=== PATIENT | male | born 1945 | race Caucasian/White ===

== ENCOUNTER 2017-06-18 05:59 | Day surgery (SDC) | payer MEDICARE, OTHER ==
[2017-06-18] MEDS ORDERED: MIDAZOLAM INJ 2 MG/2 ML VIAL ONE (10:24)
[2017-06-18] MEDS ORDERED: PROPARACAINE 0.5% OPHTH SOL 15 ML BTTL ONE (10:48)
[2017-06-18] MEDS ORDERED: TROP 1%/CYCLOPEN 1%/PHENYL 2% DROPS ONE (10:48)
[2017-06-18] MEDS ORDERED: TROP 1%/CYCLOPEN 1%/PHENYL 2% DROPS OPHTH ONE (11:30)
[2017-06-18] MEDS ORDERED: TOBRAMYCIN SULF 0.3 % OPHT SOL 1 DROP RIGHT_EYE ONE ×4 (11:30→12:31)
[2017-06-18] MEDS ORDERED: PROPARACAINE 0.5% OPHTH SOL 15 ML BTTL RIGHT_EYE ONE ×2 (12:05→12:10)
[2017-06-18] MEDS ORDERED: LIDOCAINE 1% PF 2 ML AMP INJ ONE (12:17)
[2017-06-18] MEDS ORDERED: DEXAMETHASONE 0.1% OPHTH SOL 1 DROP RIGHT_EYE ONE ×3 (12:21→12:31)
[2017-06-18] MEDS ORDERED: BRIMONIDINE 0.2% OPHTH DROPS RIGHT_EYE ONE ×3 (12:22→12:31)
[2017-06-18 13:02] VITALS: TEMP 97; O2SAT 97
[2017-06-18 13:13] VITALS: BP 136/72
== END 2017-06-18 13:10 | disposition home or self-care (01) ==
LOC: AMB 05:59
PROVIDERS: ATTEND Ophthalmology
DX: H25.11 Age-related nuclear cataract, right eye (principal); I10 Essential (primary) hypertension; E11.36 Type 2 diabetes mellitus with diabetic cataract; K21.9 Gastro-esophageal reflux disease without esophagitis; E66.9 Obesity, unspecified; F17.220 Nicotine dependence, chewing tobacco, uncomplicated; I25.2 Old myocardial infarction; Z79.84 Long term (current) use of oral hypoglycemic drugs; Z79.02 Long term (current) use of antithrombotics/antiplatelets; Z79.899 Other long term (current) drug therapy
CPT/HCPCS: 36416; 66984; 82948; J2250

== ENCOUNTER 2017-07-02 06:15 | Day surgery (SDC) | payer MEDICARE, OTHER ==
[2017-07-02] MEDS ORDERED: PROPARACAINE 0.5% OPHTH SOL 15 ML BTTL ONE (07:36)
[2017-07-02] MEDS ORDERED: TROP 1%/CYCLOPEN 1%/PHENYL 2% DROPS ONE (07:37)
[2017-07-02] MEDS: TOBRAMYCIN SULF 0.3 % OPHT SOL 1 DROP LEFT_EYE ONE ×2 (09:23→10:16)
[2017-07-02] MEDS ORDERED: MIDAZOLAM INJ 2 MG/2 ML VIAL ONE (09:50)
[2017-07-02] MEDS ORDERED: PROPARACAINE 0.5% OPHTH SOL 15 ML BTTL LEFT_EYE ONE (09:54)
[2017-07-02] MEDS ORDERED: LIDOCAINE 1% PF 2 ML AMP INJ ONE (09:56)
[2017-07-02] MEDS ORDERED: DEXAMETHASONE 0.1% OPHTH SOL 1 DROP LEFT_EYE ONE ×3 (10:04→10:16)
[2017-07-02] MEDS ORDERED: TOBRAMYCIN SULF 0.3 % OPHT SOL 1 DROP LEFT_EYE ONE ×2 (10:04→10:10)
[2017-07-02] MEDS ORDERED: BRIMONIDINE 0.2% OPHTH DROPS LEFT_EYE ONE ×3 (10:05→10:16)
[2017-07-02 13:00] VITALS: O2SAT 96
[2017-07-02 13:24] VITALS: BP 143/79; TEMP 96.9
== END 2017-07-02 10:40 | disposition home or self-care (01) ==
LOC: AMB 06:15
PROVIDERS: ATTEND Ophthalmology
DX: H25.12 Age-related nuclear cataract, left eye (principal); I10 Essential (primary) hypertension; I25.10 Atherosclerotic heart disease of native coronary artery without angina pectoris; E11.36 Type 2 diabetes mellitus with diabetic cataract; K21.9 Gastro-esophageal reflux disease without esophagitis; E66.9 Obesity, unspecified; F17.220 Nicotine dependence, chewing tobacco, uncomplicated; Z79.899 Other long term (current) drug therapy
CPT/HCPCS: 00142; 36416; 66984; 82948; J2250

== ENCOUNTER → 2019-02-13 | Outpatient (CLI) | payer MEDICARE, OTHER ==
--- NOTE | 2019-02-13 16:46 | US ---
EXAM DESCRIPTION: Renal: Ultrasound. CLINICAL HISTORY: 73 years Male CYST OF KIDNEY COMPARISON: None. TECHNIQUE: Transcutaneous scanning: Two-dimensional and Doppler modes. Technically difficult study due to patient body habitus. FINDINGS: Right kidney measures 10.3 x 6.7 x 7.0 cm; mid-renal cortical thickness 14 mm. . Increased cortical echogenicity same as liver. No hydronephrosis No echogenic stones. Smooth contour of the kidney with no perinephric fluid. 4.3 x 3.5 x 3.0 cm lobulated anechoic cyst with thin valdes and posterior acoustic enhancement. Normal vascularity. Proximal ureter not visualized. Left kidney measures 11.3 x 6.8 x 6.2 cm; mid-renal cortical thickness 15 mm. Increased cortical echogenicity same as the liver. No hydronephrosis. No echogenic stones. Slightly lobulated contour of the kidney with no perinephric fluid. Normal vascularity.. Proximal ureter not visualized visualized. Urinary bladder not visualized. Abdominal aorta: not measured. IMPRESSION: 1. Bilateral kidneys normal size and cortical thickness. 4.3 cm lobulated cyst on the right kidney. Cortical echogenicity and increased, similar to the liver. Slightly lobulated left renal capsule. This can indicate medical renal disease. Correlate with renal function studies. 2. Urinary bladder and abdominal aorta were not evaluated.. Electronically signed by: Jesus Craft MD 02/13/2019 4:43 PM CDT
== END ==
LOC: US 10:46
PROVIDERS: ATTEND Emergency Medicine
DX: N28.1 Cyst of kidney, acquired (principal)

== ENCOUNTER → 2019-04-28 | Outpatient (CLI) | payer MEDICARE, OTHER | LOC: LAB.O 12:41 | PROVIDERS: ATTEND Internal Medicine Cardiovascular Disease | DX: I25.10 Atherosclerotic heart disease of native coronary artery without angina pectoris (principal); E78.5 Hyperlipidemia, unspecified; Z51.81 Encounter for therapeutic drug level monitoring ==

== ENCOUNTER → 2019-08-08 | Outpatient (CLI) | payer MEDICARE, OTHER | LOC: LAB.O 14:20 | PROVIDERS: ATTEND Internal Medicine Cardiovascular Disease | DX: I25.10 Atherosclerotic heart disease of native coronary artery without angina pectoris (principal); I50.9 Heart failure, unspecified; E11.9 Type 2 diabetes mellitus without complications; I10 Essential (primary) hypertension; E03.9 Hypothyroidism, unspecified; R06.02 Shortness of breath ==

== ENCOUNTER 2019-08-14 16:25 | Emergency (ER) | payer MEDICARE, OTHER ==
[2019-08-14] MEDS ORDERED: TETRACAINE HCL 0.5% OPHTH SOL 1 DROP ONE (16:38)
[2019-08-14] MEDS ORDERED: MORPHINE SULFATE INJ 10 MG/ML VIAL ONE (17:30)
[2019-08-14] MEDS ORDERED: ONDANSETRON INJ 4 MG/2 ML VIAL ONE (17:30)
[2019-08-14] MEDS ORDERED: TETANUS,DIPHTHERIA,PERTUSSIS 1 EA SYG IM ONE (17:31)
== END 2019-08-14 17:45 | disposition home or self-care (01) ==
LOC: ER 16:25
DX: S05.01XA Injury of conjunctiva and corneal abrasion without foreign body, right eye, initial encounter (principal); S05.11XA Contusion of eyeball and orbital tissues, right eye, initial encounter; H11.012 Amyloid pterygium of left eye; H11.011 Amyloid pterygium of right eye; H53.2 Diplopia; W33.02XA Accidental discharge of hunting rifle, initial encounter; Z23 Encounter for immunization; Z95.0 Presence of cardiac pacemaker; Z79.02 Long term (current) use of antithrombotics/antiplatelets; Y92.9 Unspecified place or not applicable
CPT/HCPCS: 90471; 90715; J2270; J2405